=== PATIENT | female | born 1950 | race Caucasian/White ===

== ENCOUNTER → 2024-01-15 10:14 | Outpatient (REF) | payer MEDICARE, OTHER, SELFPAY ==
[2024-01-15 10:33] VITALS: BP 123/74; BP_SYST 73
[2024-01-15 11:10] LABS: Hematocrit 43.6 % (37.0-47.0); Hemoglobin 14.7 g/dL (12.0-16.0); Mean Corp Hgb Conc. 33.7 g/dL (33.0-37.0); Mean Corpuscular Hgb 32.2 pg (27.0-31.0); Mean Corpuscular Volume 95.6 fL (81.0-99.0); Mean Platelet Volume 10.4 fL (7.4-10.4); Platelet Count 281 10^3/uL (130-400); Red Blood Cell Count 4.56 10^6/uL (4.20-5.40); Red Cell Dist. Width 13.3 % (11.5-14.5); White Blood Cell Count 9.2 10^3/uL (4.8-10.8)
[2024-01-15 11:39] LABS: INR 1.08
== END ==
LOC: RADI 10:14
PROVIDERS: ATTENDING PHYSICIAN Internal Medicine Hematology & Oncology; FAMILY PHYSICIAN Nurse Practitioner Family
DX: K76.89 Other specified diseases of liver (principal); C49.A3 Gastrointestinal stromal tumor of small intestine; Z79.01 Long term (current) use of anticoagulants; Z53.8 Procedure and treatment not carried out for other reasons
CPT/HCPCS: 36415; 47000; 76942; 85027; 85610

== ENCOUNTER → 2024-09-17 14:01 | Outpatient (REF) | payer MEDICARE, OTHER, SELFPAY | LOC: PAVMRI 14:01 | PROVIDERS: ATTENDING PHYSICIAN Internal Medicine Hematology & Oncology; FAMILY PHYSICIAN Nurse Practitioner Family | DX: C49.A3 Gastrointestinal stromal tumor of small intestine (principal) | CPT/HCPCS: 74183; A9575 ==

== ENCOUNTER → 2025-01-26 10:47 | Outpatient (REF) | payer MEDICARE, OTHER, SELFPAY | LOC: MRI 3T 10:47 | PROVIDERS: ATTENDING PHYSICIAN Internal Medicine Hematology & Oncology; FAMILY PHYSICIAN Nurse Practitioner Family | DX: C49.A3 Gastrointestinal stromal tumor of small intestine (principal) | CPT/HCPCS: 74183; A9575 ==

== ENCOUNTER → 2025-08-02 12:40 | Outpatient (REF) | payer MEDICARE, OTHER, SELFPAY | LOC: MRI 3T 12:40 | PROVIDERS: ATTENDING PHYSICIAN Internal Medicine Hematology & Oncology; FAMILY PHYSICIAN Nurse Practitioner Family | DX: C49.A3 Gastrointestinal stromal tumor of small intestine (principal) | CPT/HCPCS: 74183; A9575 ==